=== PATIENT | female | born 1940 | race Caucasian/White ===

== ENCOUNTER → 2017-12-13 | Outpatient (CLI) | payer MEDICARE ==
[~2017-12-13] MED LIST: AMLO5TAB7 PO; APIX5TAB PO; ATOR10 PO; BRIO IH; CYAN50008 PO; DENO60DI SQ; FISH OIL PO; FURO40TA5 PO; GLUC-172 PO; LEFL10TA15 PO; LEVO125T4 PO; LOSA25TA16 PO; METO200T49 PO; NABU750T2 PO; POTA10CA44 PO; SPIR25TA6 PO; TUMERIC PO; VALA500T38 PO; [UNRECOGNIZED DRUG - OTHER] PO
== END | disposition home or self-care (01) ==
LOC: OIH 13:58
PROVIDERS: ATTEND Internal Medicine
DX: J90 Pleural effusion, not elsewhere classified (principal); L92.8 Other granulomatous disorders of the skin and subcutaneous tissue; R06.00 Dyspnea, unspecified
CPT/HCPCS: 71046

== ENCOUNTER → 2018-05-01 | Outpatient (CLI) | payer MEDICARE ==
[~2018-05-01] MED LIST changes: -AMLO5TAB7 PO; +AMLO5TAB9 PO; -LOSA25TA16 PO; +LOSA25TA41 PO
[2018-05-01 16:16] LABS: CREATININE 1.6 mg/dL (0.5-1.5)
== END | disposition home or self-care (01) ==
LOC: LAB 15:13
PROVIDERS: ATTEND Internal Medicine
DX: R06.02 Shortness of breath (principal)
CPT/HCPCS: 36415; 82565; 84520

== ENCOUNTER → 2019-11-22 | Outpatient (CLI) | payer MEDICARE ==
[~2019-11-22] MED LIST changes: -VALA500T38 PO; +VALA500T42 PO
== END | disposition home or self-care (01) ==
LOC: OIH 15:41
PROVIDERS: ATTEND Internal Medicine
DX: J44.9 Chronic obstructive pulmonary disease, unspecified (principal); I10 Essential (primary) hypertension; I70.0 Atherosclerosis of aorta
CPT/HCPCS: 71046